=== PATIENT | male | born 1980 ===

== ENCOUNTER 2019-02-28 14:56 | Emergency (ER) | payer SELFPAY ==
[~2019-02-28] VITALS: Ht 175.3 cm; Wt 59.0 kg
--- NOTE | 2019-02-28 15:24 | ED Abdominal Pain ---
General Chief Complaint: Abdominal/GI Problems Nursing Triage Note: REPORTS HE HAS FELT NAUSEATED SINCE LAST PM AND HAS HAD DIARRHEA OFF AND ON SINCE LAST PM. TOOK IMODIUM THIS AM WITHOUT RELIEF. Sepsis Screen: No Definite Risk Source of Information: Patient, EMS, RN Notes Reviewed Exam Limitations: No Limitations History of Present Illness Date Seen by Provider: February 28, 2019 Time Seen by Provider: 15:23 Initial Comments Patient presents c/ c/o nausea and diarrhea since last PM. States he has tried some Imodium s/ benefit. No known fever. Timing/Duration: 12-24 Hours, Other (since last PM) Location: Suprapubic Activities at Onset: None Modifying Factors: Improves With Other (none) Associated Symptoms: Denies Symptoms Allergies and Home Medications Patient Home Medication List Home Medication List Reviewed: Yes Review of Systems Review of Systems Constitutional: see HPI Gastrointestinal: See HPI, Diarrhea, Nausea All Other Systems Reviewed Negative Unless Noted: Yes (Negative excepted noted.) Past Pusmiri-Ifdvef-Rkqlgj Hx Patient Social History Alcohol Use: Denies Use Recreational Drug Use: Yes Drug of Choice: MARIJUANA Smoking Status: Current Everyday Smoker Type Used: Cigarettes 2nd Hand Smoke Exposure: Yes Recent Foreign Travel: No Contact w/Someone Who Travel: No Recent Infectious Disease Expo: No Recent Hopitalizations: No Physical Abuse: No Sexual Abuse: No Mistreated: No Fear: No Seasonal Allergies Seasonal Allergies: No Past Medical History Surgeries: No Respiratory: Yes Emphysema Cardiac: No Neurological: No Genitourinary: No Gastrointestinal: No Musculoskeletal: No Endocrine: No HEENT: No Cancer: No Psychosocial: No Integumentary: No Blood Disorders: No Adverse Reaction/Blood Tranf: No Physical Exam Vital Signs Vital Signs - First Documented 02/28/19 02/28/19 15:09 16:15 Temp 98.9 Pulse 74 Resp 18 B/P (MAP) 146/83 (104) Pulse Ox 99 O2 Delivery Room Air Capillary Refill : Less Than 3 Seconds Height/Weight/BMI Height: 5'9.00" Weight: 130lbs. oz. 58.055761jp; BMI Method:Stated General Appearance: WD/WN Respiratory: no respiratory distress Cardiovascular: regular rate, rhythm Rectal: deferred Progress/Results/Core Measures Results/Orders Lab Results Laboratory Tests Test 02/28/19 15:04 02/28/19 15:15 Range/Units Stool Occult Blood Immunoassay POSITIVE H NEGATIVE White Blood Count 18.8 H 4.3-11.0 10^3/uL Red Blood Count 4.84 4.35-5.85 10^6/uL Hemoglobin 14.2 13.3-17.7 G/DL Hematocrit 44 40-54 % Mean Corpuscular Volume 90 80-99 FL Mean Corpuscular Hemoglobin 29 25-34 PG Mean Corpuscular Hemoglobin Concent 33 32-36 G/DL Red Cell Distribution Width 13.4 10.0-14.5 % Platelet Count 415 H 130-400 10^3/uL Mean Platelet Volume 8.9 7.4-10.4 FL Neutrophils (%) (Auto) 86 H 42-75 % Lymphocytes (%) (Auto) 9 L 12-44 % Monocytes (%) (Auto) 4 0-12 % Eosinophils (%) (Auto) 1 0-10 % Basophils (%) (Auto) 1 0-10 % Neutrophils # (Auto) 16.1 H 1.8-7.8 X 10^3 Lymphocytes # (Auto) 1.6 1.0-4.0 X 10^3 Monocytes # (Auto) 0.8 0.0-1.0 X 10^3 Eosinophils # (Auto) 0.2 0.0-0.3 10^3/uL Basophils # (Auto) 0.1 0.0-0.1 10^3/uL Neutrophils % (Manual) 85 % Lymphocytes % (Manual) 11 % Monocytes % (Manual) 2 % Eosinophils % (Manual) 0 % Basophils % (Manual) 0 % Band Neutrophils 2 % Sodium Level 137 135-145 MMOL/L Potassium Level 5.2 H 3.6-5.0 MMOL/L Chloride Level 104 98-107 MMOL/L Carbon Dioxide Level 23 21-32 MMOL/L Anion Gap 10 5-14 MMOL/L Blood Urea Nitrogen 17 7-18 MG/DL Creatinine 0.95 0.60-1.30 MG/DL Estimat Glomerular Filtration Rate > 60 BUN/Creatinine Ratio 18 Glucose Level 98 70-105 MG/DL Calcium Level 9.3 8.5-10.1 MG/DL Corrected Calcium 9.2 8.5-10.1 MG/DL Magnesium Level 1.9 1.8-2.4 MG/DL Total Bilirubin 0.2 0.1-1.0 MG/DL Aspartate Amino Transf (AST/SGOT) 20 5-34 U/L Alanine Aminotransferase (ALT/SGPT) 18 0-55 U/L Alkaline Phosphatase 92 40-136 U/L Total Protein 7.5 6.4-8.2 GM/DL Albumin 4.1 3.2-4.5 GM/DL Micro Results Microbiology 02/28/19 Stool Culture - Preliminary, Resulted 02/28/19 Rotavirus Antigen - Final, Resulted 02/28/19 C. difficile GDH Antigen & Toxins - Final, Complete My Orders Orders - ANISHA SAMUELS DO Comprehensive Metabolic Panel (02/28/19 15:24) Stool Culture (02/28/19 15:24) Fecal Wbc (02/28/19 15:24) C Difficile Ag + Toxin A/B. (02/28/19 15:24) Rotavirus Antigen (02/28/19 15:24) Occult Blood Stool (02/28/19 15:24) Cbc With Automated Diff (02/28/19 15:31) Magnesium (02/28/19 15:31) Manual Differential (02/28/19 15:15) Vital Signs/I&O 02/28/19 02/28/19 15:09 16:15 Temp 98.9 98.9 Pulse 74 72 Resp 18 16 B/P (MAP) 146/83 (104) 139/91 (107) Pulse Ox 99 O2 Delivery Room Air Room Air Blood Pressure Mean: 104 Progress Progress Note : Progress Note Patient left AMA prior to evaluation/work up being completed. Departure Impression Primary Impression: Abdominal pain Additional Impression: Diarrhea Disposition: 07 AGAINST MEDICAL ADVICE Condition: Against Medical Advice ANISHA SAMUELS DO February 28, 2019 15:24
[2019-02-28 15:39] LABS: HEMATOCRIT 44 % (40-54); HEMOGLOBIN 14.2 G/DL (13.3-17.7); MEAN CORPUSCULAR HEMOGLOBIN 29 PG (25-34); MEAN CORPUSCULAR VOLUME 90 FL (80-99); WHITE BLOOD COUNT 18.8 10^3/uL (4.3-11.0)
[2019-02-28 15:40] LABS: BASOPHILS % (AUTO) 1 % (0-10); EOSINOPHILS % (AUTO) 1 % (0-10); LYMPHOCYTES % (AUTO) 9 % (12-44); MEAN CORPUSCULAR HGB CONC 33 G/DL (32-36); MEAN PLATELET VOLUME 8.9 FL (7.4-10.4); MONOCYTES % (AUTO) 4 % (0-12); NEUTROPHILS % (AUTO) 86 % (42-75); PLATELET COUNT 415 10^3/uL (130-400); RED CELL DISTRIBUTION WIDTH 13.4 % (10.0-14.5)
[2019-02-28 15:41] LABS: BASOPHILS # (AUTO) 0.1 10^3/uL (0.0-0.1); EOSINOPHILS # (AUTO) 0.2 10^3/uL (0.0-0.3); LYMPHOCYTES # (AUTO) 1.6 X 10^3 (1.0-4.0); MONOCYTES # (AUTO) 0.8 X 10^3 (0.0-1.0); NEUTROPHILS # (AUTO) 16.1 X 10^3 (1.8-7.8)
[2019-02-28 15:58] LABS: BAND NEUTROPHILS 2 %; BASOPHILS % (MANUAL) 0 %; EOSINOPHILS % (MANUAL) 0 %; LYMPHOCYTES % (MANUAL) 11 %; MONOCYTES % (MANUAL) 2 %; NEUTROPHILS % (MANUAL) 85 %
[2019-02-28 15:59] LABS: CHLORIDE 104 MMOL/L (98-107); POTASSIUM 5.2 MMOL/L (3.6-5.0); SODIUM 137 MMOL/L (135-145)
[2019-02-28 16:00] LABS: ALANINE AMINOTRANSFERASE 18 U/L (0-55); ALKALINE PHOSPHATASE 92 U/L (40-136); BILIRUBIN,TOTAL 0.2 MG/DL (0.1-1.0); BUN/CREATININE RATIO 18; CALCIUM 9.3 MG/DL (8.5-10.1); CARBON DIOXIDE 23 MMOL/L (21-32); CREATININE SERUM 0.95 MG/DL (0.60-1.30); GFR ESTIMATED > 60; GLUCOSE 98 MG/DL (70-105); MAGNESIUM 1.9 MG/DL (1.8-2.4)
[2019-02-28 16:01] LABS: ALBUMIN 4.1 GM/DL (3.2-4.5); TOTAL PROTEIN 7.5 GM/DL (6.4-8.2)
[2019-02-28 16:15] VITALS: BP 139/91
--- NOTE | 2019-02-28 16:19 | NUR ---
THE PT STARTED YELLING PROFANITIES FROM HIS ROOM AND IT ESCALATED VERY QUICKLY TO CALLING ALL OF US IN THE ER "[employer]" PD WAS CALLED FOR THE PT BEING BELIGERENT. PD ARRIVED AND THE PATIENT HAD ALREADY EXITED THE BUILDING AND WAS SITTING ON THE BENCH OUTSIDE. THIS RN WAITED FOR PD TO ARRIVE TO REMOVE HIS IV FOR MY OWN SAFETY. HE CONTINUED THE PROFANITES OUTSIDE INCLUDING CALLING OFFICER KILEY AND NICK "[employer]". HIS MOTHER IN LAW ARRIVED TO PICK HIM UP AND HE SAID "CANT EVEN GET A MOTHER FUCKING WARM BLANKET AT THIS PLACE". THE PT WAS PROVIDED W[employer]ANKETS ON TWO DIFFERENT OCCASIONS TODAY IN HIS HOUR AND FIFTEEN MINUTE VISIT IN THE ER.
== END 2019-02-28 16:15 | disposition left against medical advice (07) ==
LOC: ER FS 14:58
DX: R10.9 Unspecified abdominal pain (principal); R19.7 Diarrhea, unspecified; J43.9 Emphysema, unspecified; F12.10 Cannabis abuse, uncomplicated; F17.210 Nicotine dependence, cigarettes, uncomplicated
CPT/HCPCS: 36415; 80053; 82274; 83735; 85007; 85027; 87015; 87045; 87046; 87324; 87425; 87449; 87899